=== PATIENT | male | born 1960 | race Caucasian/White ===

== ENCOUNTER 2018-10-29 06:20 | Day surgery (SDC) | payer OTHER ==
--- NOTE | 2018-10-27 16:11 | RAD REPORT ---
EXAM DESCRIPTION: Magnus Snow (2 Views)10/27/2018 4:05 pm CLINICAL HISTORY: Coronary artery disease/preop COMPARISON: None FINDINGS: The lungs appear clear of acute infiltrate. The heart is normal size IMPRESSION: No acute abnormalities displayed
[2018-10-27 16:34] LABS: Absolute Lymphocytes (CBC) 2.7 K/uL (0.7-4.9); Absolute Monocytes 0.8 K/uL (0.1-1.3); Absolute Neutrophil 3.4 K/uL (1.8-8.0); Basophils % 0.9 % (0-1.3); Eosinophils % 5.6 % (0-4.4); Hematocrit 48.3 % (39.6-49.0); Lymphocytes % 36.9 % (15.3-44.8); MCH 32.2 pg (27.0-35.0); MCV 94.2 fL (80-100); MPV 9.5 fL (7.6-11.3); Monocytes % 10.4 % (3.3-12.3); RBC Red Blood Cell Count 5.13 M/uL (4.33-5.43)
[2018-10-27 16:41] LABS: Protime INR 0.94
[2018-10-27 16:47] LABS: Potassium 4.3 mmol/L (3.5-5.1)
[2018-10-29] MEDS ORDERED: LIDOCAINE 1% MPF 30 ML VIAL ONE (06:54)
[2018-10-29] MEDS ORDERED: HEPA 1000U/500MLS 1,000 UNIT/500 ML BAG IV ONE (06:54)
[2018-10-29] MEDS ORDERED: NA CHLORIDE 0.9% 500 ML ONE (06:59)
[2018-10-29] MEDS ORDERED: MIDAZOLAM HCL 2 MG/2 ML INJ ONE (07:35)
[2018-10-29] MEDS ORDERED: FENTANYL CITR 100 MCG/2 ML ONE (07:35)
[2018-10-29] MEDS ORDERED: ATROPINE SULF 1 MG/10 ML SYR IV ONE (07:35)
[2018-10-29] MEDS ORDERED: NA CHLORIDE 0.9% 50 ML ONE (07:35)
[2018-10-29] MEDS ORDERED: ASPIRIN 325 MG TAB ONE (08:37)
[2018-10-29] MEDS ORDERED: PRASUGREL (EFFIENT) 10 MG TAB ONE (08:38)
[2018-10-29] MEDS ORDERED: ZOLPIDEM TARTRATE 10 MG TABLET PO PRN (11:42)
[2018-10-29] MEDS ORDERED: ONDANSETRON 4 MG/2 ML VIAL IV PRN (11:42)
[2018-10-29 12:00] VITALS: BMI 29.2
[2018-10-29] MEDS ORDERED: NITROGLYCERIN 0.4 MG/TAB SL PRN (12:00)
[2018-10-29] MEDS ORDERED: ACETAMINOPHEN 325 MG TABLET PO PRN (12:00)
[2018-10-29] MEDS ORDERED: NA CHLORIDE 0.9% 1,000 ML IV SCH (12:00)
[2018-10-29 16:18] LABS: Urine Appearance CLEAR; Urine Bilirubin NEGATIVE (NEG); Urine Blood NEGATIVE (NEG); Urine Color YELLOW; Urine Glucose 3+ (NEG); Urine Protein NEGATIVE (NEG); Urine Specific Gravity >=1.030 (1.005-1.030); Urine Urobilinogen 0.2 mg/dL (0.2-1.0)
[2018-10-29 16:35] LABS: Urine Bacteria NONE SEEN /HPF (NONE SEEN); Urine Culture Reflex Order NOT NEEDED; Urine RBC NONE SEEN /HPF (NONE SEEN)
--- NOTE | 2018-10-29 20:28 | OP ---
Date of Procedure: 10/29/2018 Surgeon: Yfn Castro MD Heat Treating Furnace Tender: Charles Quijano. The patient received Angiomax during the procedure. He received 60 mg of Effient after the procedure and 325 mg of aspirin. Postoperatively, he will go back to his home medication including statin, as pirin and Plavix. I will have him hold the Glucophage for 48 hours. He will stay overnight and go h ome tomorrow and see me in the office in 2 weeks. Procedure: Heart catheterization. History Of Present Illness: Mr. Burnham is a 58-year-old has a history of CAD, status post stent i n the LAD and the circumflex in the past. He has had a positive stress test, unstable angina, james t to the label folder today as an outpatient. Description Of Procedure: The patient was prepped and draped in the routine sterile fashion, receive d 4 mg of Versed and 25 of fentanyl for sedation. A 6-Telugu sheath introduced in the right common f emoral artery without any difficulties. Angiogram there was normal. Angio-Seal was used to close th e case. 6-Telugu catheters Deandra were used to do the diagnostic catheterization. We had to use a 3.5 Deandra on the left to inject the left main. The patient was noted to have a 70% obtuse marginal lesion that is old, patent circumflex stent, patent LAD stent in the distal vessel. In the mid LAD, he had in-stent restenosis of 70% to 80% just after the first diagonal. The diagonal had a 70% osti al lesion in it. The RCA was nondominant with a 70% mid and distal stenosis. The patient had an XB 3.5 with side holes guide LAD introduced into the left main successfully. A [place] wire 0.14 exchang e length was used to cross the lesion. A 3.0 x 12 stent Synergy was deployed in the in-stent resteno sis. This was post dilated with a 3.0 x 12 and a 3.5 x 8 Emerge noncompliant balloon at 18 atmospher es for 30 seconds with 0% residual. The patient tolerated the procedure well. Complications: There were no complications. Blood Loss: 5 cc. Postoperative Diagnosis: Coronary artery disease, status post successful percutaneous transluminal c oronary angioplasty and stent of the proximal LAD. Total conscious sedation was 1 hour. CARROL/DIOR Voice ID: [id number] Report ID: [id number]
[2018-10-30 04:46] LABS: Absolute Lymphocytes (CBC) 2.4 K/uL (0.7-4.9); Absolute Monocytes 0.8 K/uL (0.1-1.3); Absolute Neutrophil 4.2 K/uL (1.8-8.0); Basophils % 0.6 % (0-1.3); Eosinophils % 6.8 % (0-4.4); Hematocrit 45.2 % (39.6-49.0); Lymphocytes % 30.5 % (15.3-44.8); MCH 32.6 pg (27.0-35.0); MCV 92.9 fL (80-100); MPV 9.6 fL (7.6-11.3); RBC Red Blood Cell Count 4.87 M/uL (4.33-5.43)
[2018-10-30 05:22] LABS: Potassium 4.1 mmol/L (3.5-5.1)
[2018-10-30 08:19] VITALS: BP 124/74; TEMP 97.3
[2018-10-30] MEDS ORDERED: CLOPIDOGREL 75 MG TABLET PO SCH (09:00)
[2018-10-30] MEDS ORDERED: ASPIRIN 81 MG CHEWABLE TABLET PO SCH (09:00)
--- NOTE | 2018-10-30 09:20 | EKG ---
Test Date: 2018-10-30 Test Time: 07:54:33 Sole Ruffer: EDU MEASUREMENT RESULTS: Intervals: Rate: 67 MN: 224 QRSD: 80 QT: 390 QTc: 412 [place]: P: 46 MN: 224 QRS: 65 T: 76 INTERPRETIVE STATEMENTS: Sinus rhythm with 1st degree AV block Otherwise normal ECG Compared to ECG 06/23/2001 12:07:00 First degree AV block now present Electronically Signed On 10-30-18 09:20:14 HAT TRIMMER by Hank Wang
[2018-10-30 10:26] VITALS: O2SAT 98
== END 2018-10-30 10:10 | disposition home or self-care (01) ==
LOC: CCL 06:20 → 4TH 11:11 → UNDOADMOB 11:11 → 4TH 11:11 → CCL 10-30 10:10
PROC: B201YZZ Plain Radiography of Multiple Coronary Arteries using Other Contrast (ICD-10-PCS; principal; 2018-10-29)
PROC: 027034Z Dilation of Coronary Artery, One Artery with Drug-eluting Intraluminal Device, Percutaneous Approach (ICD-10-PCS; 2018-10-29)
DX: I25.110 Atherosclerotic heart disease of native coronary artery with unstable angina pectoris (principal); T82.855A Stenosis of coronary artery stent, initial encounter; I10 Essential (primary) hypertension; E78.5 Hyperlipidemia, unspecified; E11.9 Type 2 diabetes mellitus without complications; Z87.891 Personal history of nicotine dependence; Z82.49 Family history of ischemic heart disease and other diseases of the circulatory system
CPT/HCPCS: 36415; 71046; 80048; 80061; 81001; 82962; 85025; 85347; 85610; 85730; 92928; 93005; 93454; C1725; C1760; C1877; C1893; J0583; J2250; J3010